=== PATIENT | female | born 1945 | race Caucasian/White ===

== ENCOUNTER 2017-04-24 08:00 | Outpatient (CLI) | payer MEDICARE ==
[2017-04-24 13:05] LABS: BASOPHILS # (AUTO) 0.1 10^3/uL (0.0-0.1); BASOPHILS % (AUTO) 0.9 %; EOSINOPHILS # (AUTO) 0.2 10^3/uL (0.0-0.7); EOSINOPHILS % (AUTO) 2.3 %; HCT - HEMATOCRIT 42.3 % (37.0-47.0); HGB - HEMOGLOBIN 14.2 g/dL (12.0-16.0); LYMPHOCYTES # (AUTO) 1.6 10^3/uL (1.5-3.5); LYMPHOCYTES % (AUTO) 25.3 %; MEAN CORPUSCULAR HEMOGLOBIN 30.8 pg (27.0-31.0); MEAN CORPUSCULAR HGB CONC 33.7 g/dL (32.0-36.0); MEAN CORPUSCULAR VOLUME 91.5 fL (81.0-99.0); MEAN PLATELET VOLUME 9.3 fL (7.9-10.8); MONOCYTES # (AUTO) 0.7 10^3/uL (0.0-1.0); MONOCYTES % (AUTO) 10.4 %; NEUTROPHILS # (AUTO) 3.9 10^3/uL (1.5-6.6); NEUTROPHILS % (AUTO) 61.1 %; RED BLOOD COUNT 4.62 10^6/uL (4.20-5.40); RED CELL DISTRIBUTION WIDTH 13.2 % (12.0-15.0); UNCORRECTED WHITE BLOOD COUNT 6.4 x10^3/uL; WHITE BLOOD COUNT 6.4 x10^3/uL (4.8-10.8)
[2017-04-24 13:38] LABS: ALBUMIN/GLOBULIN RATIO 1.2 (1.0-2.2); BILIRUBIN,TOTAL 0.6 mg/dL (0.2-1.0); BUN - BLOOD UREA NITROGEN 15 mg/dL (6-20); CALCIUM 9.1 mg/dL (8.5-10.3); CARBON DIOXIDE - CO2 26 mmol/L (21-32); CHLORIDE 107 mmol/L (101-111); CHOL/HDL RATIO 3.2 (<4.4); CHOLESTEROL 231 mg/dL; CREATININE 0.8 mg/dL (0.4-1.0); GFR - MDRD 71 (>89); GLUCOSE 96 mg/dL (70-100); HDL CHOLESTEROL 73 mg/dL; LDL/HDL RATIO 1.9 (<4.4); SODIUM 139 mmol/L (135-145); TOTAL PROTEIN 7.3 g/dL (6.7-8.2); TRIGLYCERIDES 111 mg/dL; VLDL CHOLESTEROL 22 mg/dL
== END 2017-04-24 08:01 | disposition home or self-care (01) ==
LOC: LAB.WCP 08:00
PROVIDERS: ATTEND Physician Assistant Medical
DX: E78.5 Hyperlipidemia, unspecified (principal); K58.9 Irritable bowel syndrome, unspecified
CPT/HCPCS: 36415; 80053; 80061; 85025

== ENCOUNTER 2017-05-24 14:14 | Outpatient (CLI) | payer MEDICARE, OTHER ==
--- NOTE | 2017-05-26 13:50 | Mammography Report ---
DATE OF SERVICE: 05/24/2017 DIGITAL SCREENING MAMMOGRAM: 05/25/2017 CLINICAL INDICATION: A 72-year-old nulliparous patient with family history of breast cancer for scre ening. COMPARISON: 07/2012, 08/2011, 07/2010, 06/2009, 08/2007 TECHNIQUE: Routine CC and MLO projections were obtained of the breasts. FINDINGS: The breasts again demonstrate heterogeneously dense fibroglandular parenchyma bilaterally. Coarse and punctate, typically benign calcifications are present; no suspicious masses, clustered microcalcifications, or regions of architectural distortion are identified. IMPRESSION: Benign findings. RECOMMENDATION: Routine annual screening unless otherwise clinically indicated. BIRADS category 2 - Benign findings. STANDARD QUALIFYING STATEMENTS 1. This examination was reviewed with the aid of Computer-Aided Detection (CAD). 2. A negative or benign imaging report should not delay biopsy if clinically suspicious findings are present. Consider surgical consultation if warranted. More than 5% of cancers are not identified by imaging. 3. Dense breasts may obscure an underlying neoplasm. TD: 05/25/2017 10:23
== END 2017-05-24 14:15 | disposition home or self-care (01) ==
LOC: DI 14:14
PROVIDERS: ATTEND Physician Assistant Medical
DX: Z12.31 Encounter for screening mammogram for malignant neoplasm of breast (principal); Z80.3 Family history of malignant neoplasm of breast
CPT/HCPCS: 77067

== ENCOUNTER 2018-02-05 08:00 | Outpatient (CLI) | payer MEDICARE, OTHER ==
[2018-02-05 19:12] LABS: BASOPHILS # (AUTO) 0.1 10^3/uL (0.0-0.1); BASOPHILS % (AUTO) 0.7 %; EOSINOPHILS # (AUTO) 0.1 10^3/uL (0.0-0.7); EOSINOPHILS % (AUTO) 1.4 %; HGB - HEMOGLOBIN 14.3 g/dL (12.0-16.0); LYMPHOCYTES # (AUTO) 1.6 10^3/uL (1.5-3.5); LYMPHOCYTES % (AUTO) 20.6 %; MEAN CORPUSCULAR HEMOGLOBIN 31.3 pg (27.0-31.0); MEAN CORPUSCULAR HGB CONC 33.1 g/dL (32.0-36.0); MEAN CORPUSCULAR VOLUME 94.5 fL (81.0-99.0); MEAN PLATELET VOLUME 9.2 fL (7.9-10.8); MONOCYTES # (AUTO) 0.7 10^3/uL (0.0-1.0); NEUTROPHILS # (AUTO) 5.3 10^3/uL (1.5-6.6); NEUTROPHILS % (AUTO) 68.3 %; PLT - PLATELET COUNT 264 10^3/uL (130-450); RED BLOOD COUNT 4.56 10^6/uL (4.20-5.40); RED CELL DISTRIBUTION WIDTH 13.8 % (12.0-15.0); WHITE BLOOD COUNT 7.8 x10^3/uL (4.8-10.8)
[2018-02-05 19:45] LABS: ALBUMIN 4.1 g/dL (3.2-5.5); ALBUMIN/GLOBULIN RATIO 1.4 (1.0-2.2); BILIRUBIN,TOTAL 0.6 mg/dL (0.2-1.0); CALCIUM 9.6 mg/dL (8.5-10.3); CREATININE 0.5 mg/dL (0.4-1.0); TOTAL PROTEIN 7.1 g/dL (6.7-8.2)
== END 2018-02-05 08:01 ==
LOC: LAB.WCP 08:00
PROVIDERS: ATTEND Physician Assistant
DX: N95.0 Postmenopausal bleeding (principal); R10.31 Right lower quadrant pain
CPT/HCPCS: 36415; 80053; 85025

== ENCOUNTER 2018-02-10 09:41 | Outpatient (CLI) | payer MEDICARE, OTHER ==
[2018-02-10] MEDS ORDERED: IOPAMIDOL-300 50 ML VIAL ONE (09:50)
[2018-02-10] MEDS ORDERED: IOPAMIDOL-300 100 ML VIAL ONE (09:50)
[2018-02-10] MEDS ORDERED: IOPAMIDOL-300 50 ML VIAL PO ONE (11:10)
[2018-02-10] MEDS ORDERED: IOPAMIDOL-300 100 ML VIAL IVP ONE (11:10)
--- NOTE | 2018-02-10 21:40 | CT Report ---
Reason: POSTMENOPAUSAL BLEEDING,ABDOMINAL PAIN, RIGHT LOWE Procedure Date: 02/10/2018 Accession Number: [id number] / [id number] Procedure: CT - Abdomen/Pelvis W/ CPT Code: FULL RESULT: EXAM: CT ABDOMEN AND PELVIS EXAM DATE: 02/10/2018 11:07 AM. CLINICAL HISTORY: Right lower abdominal pain. Postmenopausal bleeding. COMPARISONS: 04/19/2010. TECHNIQUE: Routine helical CT imaging was performed through the abdomen and pelvis. IV contrast: 100 mL Omnipaque 350. Enteric contrast: Yes. Reconstructions: Coronal and sagittal. In accordance with CT protocol optimization, one or more of the following dose reduction techniques were utilized for this exam: automated exposure control, adjustment of mA and/or KV based on patient size, or use of iterative reconstructive technique. FINDINGS: Lung Bases: Unremarkable. Liver: Normal. No focal hepatic lesion. Gallbladder/Bile Ducts: Post cholecystectomy. No biliary duct dilatation. Spleen: Normal. Pancreas: Normal. Adrenal Glands: Normal. Kidneys and Ureters: Normal. No stones, hydronephrosis, or hydroureter. Peritoneal Cavity/Bowel: Postoperative changes of small bowel resection with enteroenteric anastomosis in the upper midline abdomen. Multiple surgical clips in the left upper quadrant, suspect related to prior partial colectomy. No evidence for bowel obstruction or acute inflammatory process. The appendix is normal. No free fluid, pneumoperitoneum, or adenopathy. Pelvic Organs: Possible fluid within the endometrial canal. The bladder, uterus, and ovaries otherwise within normal limits. Vasculature: Unremarkable. Bones: No significant abnormality. Other: Small fat-containing umbilical hernia. IMPRESSION: 1. Postoperative changes of small bowel resection, cholecystectomy, and possible partial colectomy. 2. No acute inflammatory obstructive process identified in the abdomen or pelvis. 3. Possible fluid within the endometrial canal, abnormal finding in a postmenopausal patient. Given reported postmenopausal bleeding, recommend further evaluation with pelvic ultrasound. RADIA
--- NOTE | 2018-02-10 22:07 | Ultrasound Report ---
Reason: POSTMENOPAUSAL BLEEDING,ABDOMINAL PAIN,RIGHT LOWER Procedure Date: 02/10/2018 Accession Number: [id number] / [id number] Procedure: US - Pelvic w/Transvaginal CPT Code: FULL RESULT: EXAM: PELVIC ULTRASOUND EXAM DATE: 02/10/2018 12:44 PM. CLINICAL HISTORY: Postmenopausal bleeding, abdominal pain, right lower. COMPARISON: None. TECHNIQUE: Realtime transabdominal pelvic scan performed to identify the uterus and adnexa and as an overview of other pelvic structures, followed by transvaginal scan to provide greater detail of the uterus and adnexa, with static image documentation. FINDINGS: Uterus: 7.1 x 3.3 x 3.3 cm, volume 40.4 cc. Anteverted position. Normal overall size and echotexture. Masses: None. Endometrium: 10.9 mm. Heterogeneous and thickened endometrium with small areas of cystic changes. No vascular stalk or focal mass or thickening noted. Cervix: Multiple nabothian cysts. No mass. Right Ovary: Ovary not seen. No adnexal abnormality. Limitation secondary to bowel gas. Left Ovary: Ovary not seen. No adnexal abnormality. Limitation secondary to bowel gas. Free Fluid: None. Other: None. IMPRESSION: 1. Abnormal thickened heterogeneous endometrium. No definite invasion. Differential includes endometrial hyperplasia versus endometrial carcinoma. If symptoms persist, recommend endometrial sampling. 2. No uterine fibroid. 3. Neither ovary seen. No adnexal lesions. RADIA
== END 2018-02-10 09:42 | disposition home or self-care (01) ==
LOC: DI 09:41
PROVIDERS: ATTEND Physician Assistant
DX: R93.8 Abnormal findings on diagnostic imaging of other specified body structures (principal); Z90.49 Acquired absence of other specified parts of digestive tract
CPT/HCPCS: 74177; 76830; 76856; Q9967

== ENCOUNTER 2018-07-26 10:59 | Outpatient (CLI) | payer MEDICARE, OTHER | END 2018-07-26 11:00 | disposition home or self-care (01) | LOC: RT 10:59 | PROVIDERS: ATTEND Obstetrics & Gynecology | DX: Z01.810 Encounter for preprocedural cardiovascular examination (principal); C54.1 Malignant neoplasm of endometrium | CPT/HCPCS: 93005 ==

== ENCOUNTER 2020-12-10 08:44 | Outpatient (CLI) | payer MEDICARE, OTHER ==
[2020-12-10 12:08] LABS: ALBUMIN 4.5 g/dL (3.2-5.5); ALBUMIN/GLOBULIN RATIO 1.5 (1.0-2.2); ALKALINE PHOSPHATASE 46 IU/L (42-121); ALT ALANINE AMINOTRANSFERASE 20 IU/L (10-60); AST ASPARTATE AMINOTRANSFERASE 20 IU/L (10-42); BILIRUBIN,TOTAL 0.9 mg/dL (0.2-1.0); BUN - BLOOD UREA NITROGEN 20 mg/dL (6-20); CALCIUM 9.8 mg/dL (8.5-10.3); CARBON DIOXIDE - CO2 27 mmol/L (21-32); CHLORIDE 103 mmol/L (101-111); CHOL/HDL RATIO 3.6 (<4.4); CHOLESTEROL 289 mg/dL; CREATININE 0.9 mg/dL (0.4-1.0); GFR - MDRD 61 (>89); GLUCOSE 102 mg/dL (70-100); HDL CHOLESTEROL 81 mg/dL; LDL CHOLESTEROL,CALCULATED 188 mg/dL; LDL/HDL RATIO 2.3 (<4.4); POTASSIUM 4.1 mmol/L (3.5-5.0); SODIUM 141 mmol/L (135-145); TOTAL PROTEIN 7.5 g/dL (6.7-8.2); TRIGLYCERIDES 102 mg/dL; VLDL CHOLESTEROL 20 mg/dL
== END 2020-12-10 23:59 | disposition home or self-care (01) ==
LOC: LAB.WCP 08:44
PROVIDERS: ATTEND Physician Assistant Medical
DX: E78.5 Hyperlipidemia, unspecified (principal)
CPT/HCPCS: 36415; 80053; 80061; 83721

== ENCOUNTER 2021-04-15 09:07 | Outpatient (CLI) | payer MEDICARE, OTHER ==
[2021-04-15 12:52] LABS: CHOL/HDL RATIO 3.5 (<4.4); CHOLESTEROL 277 mg/dL; HDL CHOLESTEROL 80 mg/dL; LDL CHOLESTEROL,CALCULATED 172 mg/dL; LDL/HDL RATIO 2.2 (<4.4); TRIGLYCERIDES 127 mg/dL; VLDL CHOLESTEROL 25 mg/dL
== END 2021-04-15 23:59 | disposition home or self-care (01) ==
LOC: LAB.WCP 09:07
PROVIDERS: ATTEND Physician Assistant Medical
DX: E78.5 Hyperlipidemia, unspecified (principal)
CPT/HCPCS: 36415; 80061; 83721

== ENCOUNTER 2021-07-14 09:27 | Outpatient (CLI) | payer MEDICARE, OTHER ==
[2021-07-14 13:14] LABS: CHOL/HDL RATIO 2.9 (<4.4); CHOLESTEROL 257 mg/dL; HDL CHOLESTEROL 88 mg/dL; LDL CHOLESTEROL,CALCULATED 136 mg/dL; LDL/HDL RATIO 1.5 (<4.4); TRIGLYCERIDES 163 mg/dL; VLDL CHOLESTEROL 33 mg/dL
== END 2021-07-14 09:28 | disposition home or self-care (01) ==
LOC: LAB.N 09:27
PROVIDERS: ATTEND Physician Assistant Medical
DX: E78.5 Hyperlipidemia, unspecified (principal)
CPT/HCPCS: 36415; 80061; 83721

== ENCOUNTER 2021-08-31 10:55 | Day surgery (SDC) | payer MEDICARE, OTHER ==
[2021-08-31] MEDS ORDERED: LACTATED RINGERS 1,000 ML IV ONE ×2 (11:28→13:34)
--- NOTE | 2021-08-31 12:19 | ANESTHESIA ---
Pre-Anesthesia VS, & Labs - Diagnosis hx of colon cancer - Procedure Colonoscopy Vital Signs: Temp Pulse Resp BP Pulse Ox 36.5 C 100 16 126/83 H 100 08/31/21 11:21 08/31/21 11:21 08/31/21 11:21 08/31/21 11:21 08/31/21 11:21 Height: 5 ft 1 in Weight (kg): 59.1 kg Body Mass Index: 24.6 BMI Classification: Healthy weight - NPO >8 hours - Is Patient ?: No - Lab Results Lab results reviewed: Yes Home Medications and Allergies Home Medications: Ambulatory Orders Cholecalciferol (Vitamin D3) [Vitamin D3] 2,000 mcg PO DAILY 08/31/21 Cyanocobalamin (Vitamin B-12) [Vitamin B-12] 1,000 mcg PO DAILY 08/31/21 Ezetimibe/Rosuvastatin Calcium [Rosuvastatin-Ezetimibe 10-10Mg] 1 each PO DAILY 08/31/21 Yuni Root/Pyridoxine HCl(B6) [Vicectin 25-325 mg Capsule] 1 each PO DAILY 08/31/21 Hyoscyamine Sulfate 0.125 mg PO PRN PRN 08/31/21 Lisinopril [Zestril] 10 mg PO DAILY 08/31/21 Cholecalciferol (Vitamin D3) [Vitamin D3] 2,000 mcg PO DAILY 08/31/21 Cyanocobalamin (Vitamin B-12) [Vitamin B-12] 1,000 mcg PO DAILY 08/31/21 Ezetimibe/Rosuvastatin Calcium [Rosuvastatin-Ezetimibe 10-10Mg] 1 each PO DAILY 08/31/21 Yuni Root/Pyridoxine HCl(B6) [Vicectin 25-325 mg Capsule] 1 each PO DAILY 08/31/21 Hyoscyamine Sulfate 0.125 mg PO PRN PRN 08/31/21 Lisinopril [Zestril] 10 mg PO DAILY 08/31/21 Allergies/Adverse Reactions: Allergies Allergy/AdvReac Type Severity Reaction Status Date / Time No Known Drug Allergies Allergy Verified 09/26/13 13:15 Anes History & Medical History - Anesthetic History Anesthesia Complications: reports: No previous complications Family history of Anesthesia Complications: Denies Family history of Malignant Hyperthermia: Denies - Medical History Cardiovascular: reports: Hypertension Pulmonary: reports: None Gastrointestinal: reports: Colon polyps, Other Urinary: reports: Frequency Musculoskeletal: reports: None Endocrine/Autoimmune: reports: None Skin: reports: None - Surgical History General: reports: Cholecystectomy, Bowel surgery Gynecologic: reports: Hysterectomy Exam General: Alert, Oriented x3, Cooperative, No acute distress Dental: WNL Mouth Openin Fingerbreadth Neck Mobility: Normal Mallampati classification: II Plan Anesthesia Type: General, Total IV Consent for Procedure(s) Verified and Reviewed: Yes Code Status: Attempt Resuscitation ASA classification: 2-Mild systemic disease Is this case an emergency?: No
[2021-08-31] MEDS ORDERED: PROPOFOL 500 MG/50 ML 500 MG/50 ML VIAL ONE (12:35)
[2021-08-31] MEDS ORDERED: ePHEDrine 50 MG/ML VIAL IVP ONE (13:04)
--- NOTE | 2021-08-31 13:25 | ANESTHESIA POST OP EVALUATION ---
Anesthesia Post Eval - Post Anesthesia Eval Vitals: Last Vital Signs Temp 36.5 C 08/31/21 11:21 Pulse 100 08/31/21 11:21 Resp 16 08/31/21 11:21 BP 126/83 H 08/31/21 11:21 Pulse Ox 100 08/31/21 11:21 CV Function Including HR & BP: Stable Pain Control: Satisfactory Nausea & Vomiting: Negative Mental Status: Baseline Respiratory Status: Airway Patent Hydration Status: Satisfactory Anesthesia Complications: None
[2021-08-31 14:03] VITALS: BP 139/74
== END 2021-08-31 10:56 | disposition home or self-care (01) ==
LOC: SDS 10:55
PROVIDERS: ATTEND Surgery
PROC: 0DBL8ZZ Excision of Transverse Colon, Via Natural or Artificial Opening Endoscopic (ICD-10-PCS; 2021-08-31)
PROC: 0DBK8ZZ Excision of Ascending Colon, Via Natural or Artificial Opening Endoscopic (ICD-10-PCS; 2021-08-31)
PROC: 0D5C8ZZ Destruction of Ileocecal Valve, Via Natural or Artificial Opening Endoscopic (ICD-10-PCS; 2021-08-31)
PROC: 0DBN8ZZ Excision of Sigmoid Colon, Via Natural or Artificial Opening Endoscopic (ICD-10-PCS; principal; 2021-08-31 12:15)
DX: Z12.11 Encounter for screening for malignant neoplasm of colon (principal); D12.2 Benign neoplasm of ascending colon; K64.4 Residual hemorrhoidal skin tags; K63.5 Polyp of colon; Z85.068 Personal history of other malignant neoplasm of small intestine; K64.8 Other hemorrhoids; Z98.0 Intestinal bypass and anastomosis status
CPT/HCPCS: 45380; 45385; 45388; J7120

== ENCOUNTER 2022-03-25 10:45 | Day surgery (SDC) | payer MEDICARE, OTHER ==
[2022-03-25] MEDS ORDERED: PROPOFOL 500 MG/50 ML 500 MG/50 ML VIAL ONE (10:50)
[2022-03-25] MEDS ORDERED: LACTATED RINGERS 1,000 ML IV ONE (10:53)
--- NOTE | 2022-03-25 10:55 | ANESTHESIA ---
Pre-Anesthesia VS, & Labs - Diagnosis hx colon polyps - Procedure colonoscopy Height: 5 ft 1 in - NPO >8 hours Last Fluid Intake: am prep - Is Patient ?: No - Lab Results Lab results reviewed: Yes Home Medications and Allergies Cholecalciferol (Vitamin D3) [Vitamin D3] 2,000 mcg PO DAILY 08/31/21 Cyanocobalamin (Vitamin B-12) [Vitamin B-12] 1,000 mcg PO DAILY 08/31/21 Ezetimibe/Rosuvastatin Calcium [Rosuvastatin-Ezetimibe 10-10Mg] 1 each PO DAILY 08/31/21 Yuni Root/Pyridoxine HCl(B6) [Vicectin 25-325 mg Capsule] 1 each PO DAILY 08/31/21 Hyoscyamine Sulfate 0.125 mg PO PRN PRN 08/31/21 Lisinopril [Zestril] 10 mg PO DAILY 08/31/21 Allergies/Adverse Reactions: Allergies Allergy/AdvReac Type Severity Reaction Status Date / Time bee venom protein (honey bee) Allergy Anaphylaxis Verified 03/24/22 12:37 Anes History & Medical History - Anesthetic History Anesthesia Complications: reports: No previous complications Family history of Anesthesia Complications: Denies Family history of Malignant Hyperthermia: Denies - Medical History Cardiovascular: reports: Hypertension, High cholesterol Pulmonary: reports: None Gastrointestinal: reports: Colon polyps, Other Urinary: reports: None Musculoskeletal: reports: Osteopenia Endocrine/Autoimmune: reports: None Skin: reports: Rosacea - Surgical History General: reports: Cholecystectomy, Colonoscopy (7 months ago, multiple polyps), Other Gynecologic: reports: Hysterectomy Exam General: Alert, Oriented x3, Cooperative Dental: WNL Mouth Openin Fingerbreadth Neck Mobility: Normal Thyromental Distance: 4-6 cm Respiratory: Lungs clear, Normal breath sounds, No respiratory distress Cardiovascular: Regular rate Neurological: Normal speech Mental/Cognitive Status: Alert/Oriented X3, Normal for patient Cognitive Status: Within normal limits Plan Anesthesia Type: Total IV Consent for Procedure(s) Verified and Reviewed: Yes Code Status: Attempt Resuscitation ASA classification: 2-Mild systemic disease Is this case an emergency?: No
--- NOTE | 2022-03-25 11:31 | HISTORY & PHYSICAL EXAMINATION ---
Chief Complaint - Chief Complaint Chief Complaint: here for colonoscopy History of Present Illness - History Obtained From Records Reviewed: yes History obtained from: pt Exam Limitations: none - History of Present Illness HPI Comment/Other: colonoscopy 6 months ago. tubular adenoma and sessile polyp with dysplasia ascending colon no gi symptoms. History - Past Medical History Cardiovascular: reports: Hypertension, High cholesterol Respiratory: reports: None Endocrine/Autoimmune: reports: None GI: reports: Colon polyps, Other : reports: None HEENT: reports: Chronic sinusitis Psych: reports: None Musculoskeletal: reports: Osteopenia Derm: reports: Rosacea MRSA Hx?: No - Past Surgical History General: reports: Cholecystectomy, Colonoscopy (7 months ago, multiple polyps), Other /[employer]: reports: Hysterectomy Meds/Allgy - Home Medications Home Medications: Ambulatory Orders Medication Instructions Recorded Confirmed Cholecalciferol (Vitamin D3) 2,000 mcg PO DAILY 08/31/21 03/25/22 [Vitamin D3] Cyanocobalamin (Vitamin B-12) 1,000 mcg PO DAILY 08/31/21 03/25/22 [Vitamin B-12] Ezetimibe/Rosuvastatin Calcium 1 each PO DAILY 08/31/21 03/25/22 [Rosuvastatin-Ezetimibe 10-10Mg] Yuni Root/Pyridoxine HCl(B6) 1 each PO DAILY 08/31/21 03/25/22 [Vicectin 25-325 mg Capsule] Hyoscyamine Sulfate 0.125 mg PO PRN PRN 08/31/21 03/25/22 Lisinopril [Zestril] 10 mg PO DAILY 08/31/21 03/25/22 - Allergies Allergies/Adverse Reactions: Allergies Allergy/AdvReac Type Severity Reaction Status Date / Time bee venom protein (honey bee) Allergy Anaphylaxis Verified 03/24/22 12:37 Review of Systems - Other Findings Other Findings: 10 pt ros as above otherwise unremarkable Exam - Vital Signs Reviewed Vital Signs: Yes Vital Signs: Vital Signs x48h Temp Pulse Resp BP Pulse Ox 03/25/22 10:56 36.8 C 94 16 154/89 H 98 - Physical Exam General Appearance: positive: No acute distress, Alert Eyes Bilateral: positive: PERRL, EOMI ENT: positive: No signs of dehydration Neck: positive: No JVD, Trachea midline Respiratory: positive: Breath sounds nml Cardiovascular: positive: Regular rate & rhythm Abdomen: positive: Non-tender, No distention Neurologic/Psychiatric: positive: Oriented x3 Conclusion/Plan - Problem List (1) History of adenomatous polyp of colon Conclusion/Plan: plan colonoscopy. parq held and consent obtained - Lab Results Lab results reviewed: Yes
[2022-03-25] MEDS ORDERED: LACTATED RINGERS 350 ML IV ONE (12:30)
--- NOTE | 2022-03-25 12:53 | ANESTHESIA POST OP EVALUATION ---
Anesthesia Post Eval - Post Anesthesia Eval Vitals: Last Vital Signs Temp 36.6 C 03/25/22 12:30 Pulse 75 03/25/22 12:30 Resp 17 03/25/22 12:30 BP 101/53 L 03/25/22 12:40 Pulse Ox 100 03/25/22 12:30 O2 Flow Rate CV Function Including HR & BP: Stable Pain Control: Satisfactory Nausea & Vomiting: Negative Mental Status: Baseline Respiratory Status: Airway Patent Hydration Status: Satisfactory Anesthesia Complications: None
[2022-03-25 12:59] VITALS: BP 110/63
== END 2022-03-25 10:46 | disposition home or self-care (01) ==
LOC: SDS 10:45
PROVIDERS: ATTEND Surgery
PROC: 0DBH8ZX Excision of Cecum, Via Natural or Artificial Opening Endoscopic, Diagnostic (ICD-10-PCS; 2022-03-25)
PROC: 0DBK8ZX Excision of Ascending Colon, Via Natural or Artificial Opening Endoscopic, Diagnostic (ICD-10-PCS; principal; 2022-03-25 12:15)
DX: D12.0 Benign neoplasm of cecum (principal); I10 Essential (primary) hypertension
CPT/HCPCS: 45380; J7120

== ENCOUNTER 2022-09-01 07:09 | Day surgery (SDC) | payer MEDICARE, OTHER ==
[~2022-09-01 07:09] MED LIST: CYCLOPENTOLATE 1% OPHTH DROPS 2 ML ONE; KETOROLAC 0.45% OPHTH DROPS ONE; PHENYLEPHRINE 2.5% OPHTH 2 ML DROPS ONE; PROPARACAINE 0.5% OPHTH DROPS 15 ML ONE
[2022-09-01] MEDS ORDERED: LACTATED RINGERS 1,000 ML IV ONE (07:11)
--- NOTE | 2022-09-01 07:40 | ANESTHESIA ---
Pre-Anesthesia VS, & Labs - Diagnosis right senile combined cataract - Procedure right cataract extraction with IOL Vital Signs: Temp Pulse Resp BP Pulse Ox O2 Flow Rate 35.9 C L 86 13 120/76 98 09/01/22 07:32 09/01/22 07:32 09/01/22 07:32 09/01/22 07:32 09/01/22 07:32 Height: 5 ft 1 in Weight (kg): 59.9 kg Body Mass Index: 24.9 BMI Classification: Normal - NPO >8 hours - Is Patient ?: No Home Medications and Allergies Cholecalciferol (Vitamin D3) [Vitamin D3] 2,000 mcg PO DAILY 08/31/21 Cyanocobalamin (Vitamin B-12) [Vitamin B-12] 1,000 mcg PO DAILY 08/31/21 Ezetimibe/Rosuvastatin Calcium [Rosuvastatin-Ezetimibe 10-10Mg] 1 each PO DAILY 08/31/21 Yuni Root/Pyridoxine HCl(B6) [Vicectin 25-325 mg Capsule] 1 each PO DAILY 08/31/21 Hyoscyamine Sulfate 0.125 mg PO PRN PRN 08/31/21 Lisinopril [Zestril] 10 mg PO DAILY 08/31/21 Allergies/Adverse Reactions: Allergies Allergy/AdvReac Type Severity Reaction Status Date / Time bee venom protein (honey bee) Allergy Anaphylaxis Verified 03/24/22 12:37 Anes History & Medical History - Anesthetic History Anesthesia Complications: reports: No previous complications - Medical History Cardiovascular: reports: Hypertension, High cholesterol Pulmonary: reports: None Gastrointestinal: reports: Colon polyps, Other Urinary: reports: None Musculoskeletal: reports: Osteopenia Endocrine/Autoimmune: reports: None Skin: reports: Rosacea - Surgical History General: reports: Cholecystectomy, Colonoscopy, Other Eyes Ears Nose Throat (EENT): reports: Cataracts Gynecologic: reports: Hysterectomy Exam General: Alert, Oriented x3, Cooperative Dental: WNL Mouth Openin Fingerbreadth Neck Mobility: Normal Mallampati classification: III Thyromental Distance: greater than 6 cm Respiratory: Lungs clear Cardiovascular: Regular rate Plan Anesthesia Type: MAC Consent for Procedure(s) Verified and Reviewed: Yes Code Status: Attempt Resuscitation ASA classification: 2-Mild systemic disease Is this case an emergency?: No
[2022-09-01] MEDS ORDERED: MIDAZOLAM 2 MG/2 ML VIAL ONE (08:14)
[2022-09-01] MEDS ORDERED: BSS/LIDOCAINE/EPINEPHRINE 1 ML VIAL ONE (08:18)
[2022-09-01] MEDS ORDERED: EPINEPHrine 1 MG/ML AMP ONE (08:18)
[2022-09-01] MEDS ORDERED: BRIMONIDINE 0.2% OPHTH DROPS 5 ML ONE (08:18)
[2022-09-01] MEDS ORDERED: TIMOLOL 0.5% OPHTH DROPS ONE (08:18)
[2022-09-01] MEDS ORDERED: TRIAMCIN/MOXIFLOX OPHTHALMIC 0.6 ML VIAL IO ONE ×2 (08:18→08:41)
[2022-09-01] MEDS ORDERED: BRIMONIDINE 0.2% OPHTH DROPS 5 ML OPTH ONE (08:41)
[2022-09-01] MEDS ORDERED: EPINEPHrine 1 MG/ML AMP IR ONE (08:41)
[2022-09-01] MEDS ORDERED: BSS/LIDOCAINE/EPINEPHRINE 1 ML SYRINGE IO ONE (08:41)
[2022-09-01] MEDS ORDERED: TIMOLOL 0.5% OPHTH DROPS OPTH ONE (08:41)
[2022-09-01] MEDS ORDERED: PROPARACAINE 0.5% OPHTH DROPS 15 ML EACHEYE ONE (08:42)
[2022-09-01] MEDS ORDERED: VANCOMYCIN OPHTH (TOPICAL) 10 MG/ML SYRINGE TOP ONE (08:42)
--- NOTE | 2022-09-01 09:05 | OPERATIVE REPORT ---
Operative Report - Other Other Information/Narrative: Date of Surgery: 09/01/22 Preop Dx: Visually significant cataract right eye. Cataract surgery was performed in the left eye on . Postop Dx: Same Procedure: Phacoemulsification with posterior chamber toric intraocular lens implant right eye Surgeon: Dr. Jake Crane Anesthesia: Monitored anesthesia care Complications: None Operative Indications: This is a 77-year-old F with progressive vision loss in the right eye due to 2+ nuclear sclerotic, 2+ cortical, trace posterior subcapsular, and vacuolar cataract. Best corrected visual acuity was 20/40 with glare to 20/50 vision in the right eye. Indications for surgery were: - Overall decrease in vision - Difficulty seeing words on a computer screen - Difficulty reading - Difficulty seeing words, closed captions, or game scores on TV - Difficulty seeing street signs - Difficulty driving in low light or at night - Difficulty driving at night because of headlights from other vehicles - Difficulty with glare or bright lights in any situation The patient was consented at length concerning the risks and benefits of cataract surgery after which the patient expressed a desire to proceed with surgery. Operative Procedure: The patients cornea was marked in the pre-surgical area to indicate the axis for the toric intraocular lens. The patient was taken into OR#3 and placed under monitored anesthesia care. A surgical time-out was conducted confirming correct patient, correct procedure, and correct surgical site. The patient was given topical anesthesia and then prepped and draped in the usual sterile fashion. The eye was entered at the 6 and 3 oclock positions. Intracameral Shugarcaine was injected into the anterior chamber followed by a dispersive viscoelastic. A continuous-tear curvilinear capsulorhexis was performed. The nucleus was hydrodissected and phacoemulsified. The cortex was evacuated using automated infusion and aspiration. A cohesive viscoelastic was injected into the capsular bag and a 20.5 diopter toric intraocular lens was inserted into the bag and rotated to axis 015. Infusion and aspiration were used to evacuate the viscoelastic materials from the eye and the IOL was verified to remain on axis. The wounds were hydrated and the eye inflated to physiologic pressure using balanced salt solution. Approximately 0.25ml of a mixture of triamcinolone and moxifloxacin was injected trans- sclerally into the vitreous in the inferotemporal quadrant using a 30 gauge ca nnula. An additional 0.25ml of a mixture of triamcinolone and moxifloxacin was injected subconjunctivally in the superior quadrant for infection and inflammation prophylaxis. Wound integrity was checked with Weck-Penny sponges and the IOL axis was once again verified to be on the correct axis. The patient was taken from the operating room in good condition and given post-op instructions.
[2022-09-01] MEDS ORDERED: LACTATED RINGERS 850 ML IV ONE (09:10)
--- NOTE | 2022-09-01 09:18 | ANESTHESIA POST OP EVALUATION ---
Anesthesia Post Eval - Post Anesthesia Eval Vitals: Last Vital Signs Temp 36.5 C 09/01/22 08:52 Pulse 69 09/01/22 08:52 Resp 16 09/01/22 08:52 BP 117/69 09/01/22 08:52 Pulse Ox 99 09/01/22 08:52 O2 Flow Rate CV Function Including HR & BP: Stable Pain Control: Satisfactory Nausea & Vomiting: Negative Mental Status: Baseline Respiratory Status: Airway Patent Hydration Status: Satisfactory Anesthesia Complications: None
[2022-09-01 09:21] VITALS: BP 121/66
== END 2022-09-01 07:10 | disposition home or self-care (01) ==
LOC: SDS 07:09
PROVIDERS: ATTEND Ophthalmology
DX: H25.811 Combined forms of age-related cataract, right eye (principal); I10 Essential (primary) hypertension
CPT/HCPCS: 66984; A9270; J3490; J7120; V2632; V2787

== ENCOUNTER 2023-02-07 13:23 | Outpatient (CLI) | payer MEDICARE, OTHER ==
--- NOTE | 2023-02-08 11:33 | Mammography Report ---
BILATERAL DIGITAL SCREENING MAMMOGRAM 3D/2D: 02/07/2023 CLINICAL: Family history of breast cancer. Routine screening. Comparison is made to exams dated: 05/24/2017 mammogram and 08/09/2012 mammogram - [facility]. There are scattered areas of fibroglandular density in both breasts (category b / 25%-50% glandular t issue). No significant masses, calcifications, or other findings are seen in either breast. There has been no significant interval change. IMPRESSION: NEGATIVE There is no mammographic evidence of malignancy. A 1 year screening mammogram is recommended. Based on the Tyrer Cuzick model (a risk assessment model) the patients lifetime risk is 6.8% and her 10 year risk is 0.0%. According to the ACR, ACS, and NCCN guidelines, an annual breast MRI exam marvin g with mammogram is recommended if the patients lifetime risk is 20% or greater. This exam was interpreted at Station ID: [id number]. NOTE: For mammograms, a report in lay terms will be sent to the patient. Approximately 15% of breast malignancies will not be visualized mammographically. In the management of a palpable breast mass, a negative mammogram must not discourage biopsy of a clinically suspicious lesion. Electronically Signed By: Sita colorado/slava:02/07/2023 13:58:51 letter sent: No_Letter ACR BI-RADS Category 1: Negative 3341F PARENCHYMAL PATTERN: (A) - The breast(s) demonstrate(s) scattered fibroglandular densities. BI-RADS CATEGORY: (1) - 1 Mammogram [id number] 1 year screening LATERALITY: (B)
== END 2023-02-07 13:24 | disposition home or self-care (01) ==
LOC: DI.N 13:23
DX: Z12.31 Encounter for screening mammogram for malignant neoplasm of breast (principal); Z80.3 Family history of malignant neoplasm of breast

== ENCOUNTER 2024-01-18 08:38 | Outpatient (CLI) | payer MEDICARE, OTHER ==
[2024-01-18 12:17] LABS: BASOPHILS % (AUTO) 0.6 %; EOSINOPHILS # (AUTO) 0.1 10^3/uL (0.0-0.7); EOSINOPHILS % (AUTO) 2.2 %; HCT - HEMATOCRIT 43.4 % (37.0-47.0); LYMPHOCYTES # (AUTO) 1.4 10^3/uL (1.5-3.5); LYMPHOCYTES % (AUTO) 21.4 %; MEAN CORPUSCULAR HEMOGLOBIN 30.4 pg (27.0-31.0); MEAN CORPUSCULAR HGB CONC 32.3 g/dL (32.0-36.0); MEAN CORPUSCULAR VOLUME 94.3 fL (81.0-99.0); MEAN PLATELET VOLUME 11.1 fL (7.9-10.8); MONOCYTES # (AUTO) 0.7 10^3/uL (0.0-1.0); MONOCYTES % (AUTO) 11.2 %; NEUTROPHILS # (AUTO) 4.1 10^3/uL (1.5-6.6); NEUTROPHILS % (AUTO) 64.1 %; PLT - PLATELET COUNT 235 10^3/uL (130-450); RED CELL DISTRIBUTION WIDTH 12.7 % (12.0-15.0); WHITE BLOOD COUNT 6.4 x10^3/uL (4.8-10.8)
[2024-01-18 12:47] LABS: ALBUMIN 4.2 g/dL (3.2-5.5); ALBUMIN/GLOBULIN RATIO 1.4 (1.0-2.2); ALKALINE PHOSPHATASE 46 IU/L (42-121); ALT ALANINE AMINOTRANSFERASE 15 IU/L (10-60); AST ASPARTATE AMINOTRANSFERASE 17 IU/L (10-42); BILIRUBIN,TOTAL 0.6 mg/dL (0.2-1.0); BUN - BLOOD UREA NITROGEN 16 mg/dL (6-20); CALCIUM 10.2 mg/dL (8.5-10.3); CARBON DIOXIDE - CO2 28 mmol/L (21-32); CHLORIDE 103 mmol/L (101-111); CHOL/HDL RATIO 2.6 (<4.4); CHOLESTEROL 174 mg/dL; CREATININE 0.8 mg/dL (0.6-1.3); GFR - MDRD 70 (>89); GLUCOSE 107 mg/dL (74-104); HDL CHOLESTEROL 68 mg/dL; LDL CHOLESTEROL,CALCULATED 80 mg/dL; LDL/HDL RATIO 1.2 (<4.4); POTASSIUM 4.8 mmol/L (3.5-4.5); SODIUM 136 mmol/L (135-145); TOTAL PROTEIN 7.1 g/dL (6.4-8.9); TRIGLYCERIDES 132 mg/dL; VLDL CHOLESTEROL 26 mg/dL
== END 2024-01-18 08:39 | disposition home or self-care (01) ==
LOC: LAB.N 08:38
PROVIDERS: ATTEND Physician Assistant Medical
DX: E78.5 Hyperlipidemia, unspecified (principal); I10 Essential (primary) hypertension
CPT/HCPCS: 36415; 80053; 80061; 83721; 85025